=== PATIENT | female | born 1980 | race African-American/Black ===

== ENCOUNTER 2019-09-06 05:26 | Emergency (ER) | payer MEDICAID, OTHER ==
[~2019-09-06] VITALS: Ht 147.3 cm; Wt 74.8 kg
--- NOTE | 2019-09-06 05:31 | NUR ---
[facility] AT THE BEDSIDE.
[2019-09-06 05:33] VITALS: BP 122/69
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
--- NOTE | 2019-09-06 05:45 | NUR ---
ED Nurse Note: Xray at bedside.
[2019-09-06] MEDS ORDERED: IBUPROFEN600 MG ORAL (06:09)
--- NOTE | 2019-09-06 06:15 | NUR ---
ED Nurse Note: Zane bandage wrap applied. Crutches are provided.
[2019-09-06 06:30] VITALS: BP 122/69
--- NOTE | 2019-09-06 06:30 | NUR ---
ED Nurse Note: Pt cleared by ERMD for discharge. DC instructions/prescription was given and explained to pt and verbalized understanding of teachings. All medical deviecs such as ID band removed. Pt is AAO x4, ambulatory and left with all personal belongings. Taxi voucher provided.
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
== END 2019-09-06 06:30 | disposition home or self-care (01) ==
LOC: EDBD 05:26 → EMR 05:39
DX: S93.401A Sprain of unspecified ligament of right ankle, initial encounter (principal); S00.531A Contusion of lip, initial encounter; J45.909 Unspecified asthma, uncomplicated; K29.70 Gastritis, unspecified, without bleeding; Y04.2XXA Assault by strike against or bumped into by another person, initial encounter; Y93.9 Activity, unspecified; Y92.9 Unspecified place or not applicable; Z88.0 Allergy status to penicillin
CPT/HCPCS: 73610; Z7502; 99283